=== PATIENT | female | born 1935 | race Two or more races ===

== ENCOUNTER 2018-12-04 10:02 | Day surgery (SDC) | payer MEDICARE, OTHER ==
[~2018-12-04] VITALS: Ht 160 cm; Wt 54.7 kg
[2018-12-04] MEDS ORDERED: SODIUM CHLORIDE 0.9% 1,000 ML IV SCH (10:54)
[2018-12-04 11:36] VITALS: BP 115/65
[2018-12-04] MEDS ORDERED: LIDOCAINE-MPF 1%, 5ML ONE (11:40)
[2018-12-04] MEDS ORDERED: FUROSEMIDE PO (11:42)
[2018-12-04] MEDS ORDERED: TRAZ50TA66 PO (11:42)
[2018-12-04] MEDS ORDERED: METO25TA91 PO (11:42)
[2018-12-04] MEDS ORDERED: WARF2.5T32 PO (11:42)
[2018-12-04] MEDS ORDERED: TRAM50TA2 PO (11:42)
[2018-12-04] MEDS ORDERED: FENTANYL PF 100 MCG/2ML ONE (12:08)
[2018-12-04] MEDS ORDERED: MIDAZOLAM 1 MG/ML, 5ML ONE (12:08)
== END 2018-12-04 17:05 | disposition home or self-care (01) ==
LOC: OUT 10:02 → EDSTATUS 12:00 → OUT 17:05
PROVIDERS: ATTEND Urology
DX: N99.522 Malfunction of incontinent external stoma of urinary tract (principal); N13.30 Unspecified hydronephrosis; I10 Essential (primary) hypertension; Y83.8 Other surgical procedures as the cause of abnormal reaction of the patient, or of later complication, without mention of misadventure at the time of the procedure; Y82.8 Other medical devices associated with adverse incidents
CPT/HCPCS: 50435; C1729; C1751; C1769; J7030; J2250; J3010